=== PATIENT | female | born 1995 | race Two or more races ===

== ENCOUNTER 2022-08-16 09:57 | Outpatient (CLI) | payer OTHER | END 2022-08-16 11:25 | disposition home or self-care (01) | LOC: PRENATAL 09:57 | PROVIDERS: ATTEND Obstetrics & Gynecology Maternal & Fetal Medicine | DX: Z76.1 Encounter for health supervision and care of foundling (principal) ==

== ENCOUNTER 2022-08-25 09:44 | Outpatient (CLI) | payer OTHER | END 2022-08-25 11:19 | disposition home or self-care (01) | LOC: PRENATAL 09:44 | PROVIDERS: ATTEND Obstetrics & Gynecology Maternal & Fetal Medicine | DX: O35.9XX0 Maternal care for (suspected) fetal abnormality and damage, unspecified, not applicable or unspecified (principal); O35.3XX0 Maternal care for (suspected) damage to fetus from viral disease in mother, not applicable or unspecified; O28.1 Abnormal biochemical finding on antenatal screening of mother; Z3A.19 19 weeks gestation of pregnancy ==

== ENCOUNTER 2022-11-26 13:44 | Outpatient (CLI) | payer OTHER | END 2022-11-26 17:30 | disposition home or self-care (01) | LOC: PRENATAL 13:44 | PROVIDERS: ATTEND Obstetrics & Gynecology Maternal & Fetal Medicine | DX: O26.849 Uterine size-date discrepancy, unspecified trimester (principal); O36.8199 Decreased fetal movements, unspecified trimester, other fetus; O28.1 Abnormal biochemical finding on antenatal screening of mother; Z3A.32 32 weeks gestation of pregnancy ==